=== PATIENT | male | born 1980 | race Two or more races ===

== ENCOUNTER 2017-09-06 20:05 | Emergency (ER) | payer OTHER ==
[~2017-09-06] VITALS: Ht 170.2 cm; Wt 59.9 kg
[~2017-09-06 20:05] MED LIST: ACYCLOVIR800 MG ORAL; CEPHALEXIN500 MG ORAL; IBUPROFEN600 MG ORAL; PHENAZOPYRIDIN200 MG ORAL; triumeq PO
[2017-09-06] MEDS ORDERED: Ketorolac 30mg Inj IV ONE (21:00)
[2017-09-06 21:18] LABS: APPEARANCE,URINE CLEAR; KETONES,URINE NEGATIVE (NEGATIVE); LEUKOCYTE ESTERASE ,URINE NEGATIVE (NEGATIVE); NITRITE,URINE NEGATIVE (NEGATIVE); PH,URINE 5 (4.5-8.0); PROTEIN,URINE NEGATIVE (NEGATIVE); UROBILINOGEN,URINE NORMAL MG/DL (0.0-1.0)
[2017-09-06 21:19] LABS: BASOPHILS % (AUTO) 1.2 % (0.0-2.0); LYMPHOCYTES % (AUTO) 25.1 % (20.0-45.0); MEAN CORPUSCULAR HGB CONC 35.3 G/DL (32.0-36.0); MEAN CORPUSCULAR VOLUME 102 FL (80-99); MEAN PLATELET VOLUME 6.3 FL (6.5-10.1); MONOCYTES % (AUTO) 6.7 % (1.0-10.0); PLATELET COUNT 405 K/UL (150-450); RED BLOOD COUNT 4.73 M/UL (4.70-6.10); RED CELL DISTRIBUTION WIDTH 10.3 % (11.6-14.8); WHITE BLOOD COUNT 6.1 K/UL (4.8-10.8)
[2017-09-06 21:22] LABS: ANION GAP 12 mmol/L (5-15); CALCIUM 9.3 MG/DL (8.5-10.1); CARBON DIOXIDE 26 MMOL/L (21-32); CHLORIDE 104 MMOL/L (98-107); CREATININE 1.3 MG/DL (0.55-1.30); GLOMERULAR FILTRATION RATE > 60 mL/min (>60); POTASSIUM 4.4 MMOL/L (3.5-5.1); SODIUM 142 MMOL/L (136-145)
[2017-09-06 21:27] LABS: ALANINE AMINOTRANSFERASE 30 U/L (12-78); ASPARTATE AMINO TRANSFERASE 30 U/L (15-37); LIPASE 106 U/L (73-393); TOTAL PROTEIN 8.8 G/DL (6.4-8.2)
[2017-09-06] MEDS ORDERED: Levofloxacin 500mg tab ORAL ONE (22:00)
[2017-09-06] MEDS ORDERED: Morphine Sulfate 4mg/ml Inj IVP ONE (22:00)
[2017-09-06 22:31] VITALS: BP 135/80
--- NOTE | 2017-09-06 22:32 | Emergency Room Report ---
History of Present Illness General Chief Complaint: Abdominal Pain Source: Patient Present Illness HPI 3 weeks of dysuria. Feels like bladder does not empty completely. Initially treated with cipro but only took for 2 days - stopped because he felt better. Second antibiotic course which did not improve the discomfort. He thought it might initially have been a stone. Had an ultrasound yesterday: swollen bladder , prostate. No evidence of stone. No medication has helped recently. He is requesting to have a machuca placed. Seen here 06/12/2016. Had residual hydro and thickened bladder suggestive of UTI and stone. Alleges high tolerance for pain medication. Not eating. Feeling weak. Told by PMD to go to ED. Allergies: Coded Allergies: No Known Allergies (Unverified , 12/09/14) Patient History Past Medical History: see triage record Social History: Reports: smoking, alcohol use Social History Narrative in relationship Reviewed Nursing Documentation: PMH: Agreed, PSxH: Agreed Nursing Documentation-PMH Hx Cardiac Problems: No - HIV Hx Cancer: No Hx Gastrointestinal Problems: Yes - KIDNEY STONE Hx Neurological Problems: No Review of Systems All Other Systems: negative except mentioned in HPI Physical Exam Vital Signs Date Time Temp Pulse Resp B/P (MAP) Pulse Ox O2 Delivery O2 Flow Rate FiO2 09/06/17 20:08 99.1 111 18 136/89 99 Room Air Sp02 EP Interpretation: reviewed, normal General Appearance: well appearing, no apparent distress, GCS 15 Head: normocephalic Eyes: bilateral eye normal inspection, bilateral eye PERRL ENT: moist mucus membranes Neck: supple Respiratory: lungs clear, normal breath sounds Cardiovascular #1: regular rate, rhythm Cardiovascular #2: 2+ radial (R) Gastrointestinal: no guarding, no rebound, tenderness - suprapubic Rectal: deferred Genitourinary: no CVA tenderness Musculoskeletal: back normal, gait/station normal, normal range of motion Neurologic: alert, oriented x3, grossly normal Psychiatric: anxious Skin: normal inspection, warm/dry Medical Decision Making Diagnostic Impression: Primary Impression: Dysuria ER Course Patient presents with dysuria. DDx: UTI, prostatitis, bladder or renal stone ( less likely with recent ultrasound), interstitial cystitis amongst others. Evaluation with labs and UA. Check post void residual. Will treat with hydration and analgesia. Bladder scanner 275 ml (several hours post void). Catheter not indicated. UA clear. Labs unremarkable. Repeat U/S not indicated. Still with pain. Percocet given. Feels pyridium not help. Discussed need for urologic evaluation and need for longer antibiotic course. Patient stable for outpatient observation and treatment. Laboratory Tests Test 09/06/17 20:55 White Blood Count 6.1 K/UL (4.8-10.8) Red Blood Count 4.73 M/UL (4.70-6.10) Hemoglobin 17.0 G/DL (14.2-18.0) Hematocrit 48.2 % (42.0-52.0) Mean Corpuscular Volume 102 FL (80-99) H Mean Corpuscular Hemoglobin 36.0 PG (27.0-31.0) H Mean Corpuscular Hemoglobin Concent 35.3 G/DL (32.0-36.0) Red Cell Distribution Width 10.3 % (11.6-14.8) L Platelet Count 405 K/UL (150-450) Mean Platelet Volume 6.3 FL (6.5-10.1) L Neutrophils (%) (Auto) 67.0 % (45.0-75.0) Lymphocytes (%) (Auto) 25.1 % (20.0-45.0) Monocytes (%) (Auto) 6.7 % (1.0-10.0) Eosinophils (%) (Auto) 0.0 % (0.0-3.0) Basophils (%) (Auto) 1.2 % (0.0-2.0) Prothrombin Time 10.0 SEC (9.30-11.50) Prothrombin Time INR 1.0 (0.9-1.1) PTT 29 SEC (23-33) Urine Color Pale yellow Urine Appearance Clear Urine pH 5 (4.5-8.0) Urine Specific [place] 1.010 (1.005-1.035) Urine Protein Negative (NEGATIVE) Urine Glucose (UA) Negative (NEGATIVE) Urine Ketones Negative (NEGATIVE) Urine Occult Blood Negative (NEGATIVE) Urine Nitrite Negative (NEGATIVE) Urine Bilirubin Negative (NEGATIVE) Urine Urobilinogen Normal MG/DL (0.0-1.0) Urine Leukocyte Esterase Negative (NEGATIVE) Sodium Level 142 MMOL/L (136-145) Potassium Level 4.4 MMOL/L (3.5-5.1) Chloride Level 104 MMOL/L (98-107) Carbon Dioxide Level 26 MMOL/L (21-32) Anion Gap 12 mmol/L (5-15) Blood Urea Nitrogen 8 mg/dL (7-18) Creatinine 1.3 MG/DL (0.55-1.30) Estimate Glomerular Filtration Rate > 60 mL/min (>60) Glucose Level 95 MG/DL (74-106) Calcium Level 9.3 MG/DL (8.5-10.1) Total Bilirubin 0.3 MG/DL (0.2-1.0) Aspartate Amino Transferase (AST) 30 U/L (15-37) Alanine Aminotransferase (ALT) 30 U/L (12-78) Alkaline Phosphatase 74 U/L (46-116) Total Creatine Kinase 112 U/L (26-308) Total Protein 8.8 G/DL (6.4-8.2) H Albumin 4.5 G/DL (3.4-5.0) Globulin 4.3 g/dL Albumin/Globulin Ratio 1.0 (1.0-2.7) Lipase 106 U/L (73-393) Last Vital Signs Date Time Temp Pulse Resp B/P (MAP) Pulse Ox O2 Delivery O2 Flow Rate FiO2 09/06/17 23:00 99.1 80 18 135/80 99 Room Air Status: improved Disposition: HOME, SELF-CARE Condition: Improved Scripts Hydrocodone Bit/Acetaminophen 5-325* (NORCO 5-325 TABLET*) 1 Each Tablet 1 TAB ORAL Q6HR Y for For Pain, #14 TAB Prov: Maynor Estevez M.D. 09/06/17 Ibuprofen* (MOTRIN*) 600 Mg Tablet 600 MG ORAL Q6H Y for For Pain, #20 TAB Prov: Maynor Estevez M.D. 09/06/17 Phenazopyridine Hcl* (PYRIDIUM*) 100 Mg Tablet 100 MG ORAL THREE TIMES A DAY, #18 TAB Prov: Maynor Estevez M.D. 09/06/17 Levofloxacin* (LEVAQUIN*) 500 Mg Tablet 500 MG ORAL DAILY, #10 TAB Prov: Maynor Estevez M.D. 09/06/17 Referrals: [facility],REFERRING (PCP) Maynor Estevez M.D. Sep 06, 2017 22:32
[2017-09-06] MEDS ORDERED: ATIVAN0.5 MG ORAL (22:41)
[2017-09-06] MEDS ORDERED: oxyCODONE HCL/Acetaminophen 5/325mg ORAL ONE (22:45)
[2017-09-06] MEDS ORDERED: LEVAQUIN500 MG ORAL (22:48)
[2017-09-06] MEDS ORDERED: IBUPROFEN600 MG ORAL (22:48)
[2017-09-06] MEDS ORDERED: PHENAZOPYRIDIN100 MG ORAL (22:48)
[2017-09-06] MEDS ORDERED: NORCO 5-325 TA1 EAC1 ORAL (22:48)
[2017-09-06 23:00] VITALS: BP 135/80
== END 2017-09-06 23:00 | disposition home or self-care (01) ==
LOC: EMR 20:51
DX: R30.0 Dysuria (principal); F17.200 Nicotine dependence, unspecified, uncomplicated
CPT/HCPCS: 36415; 80053; 81003; 82550; 83690; 85025; 85610; 85730; 96361; 96374; 96375; 99284; J1885; J2270; J2405

== ENCOUNTER 2017-10-25 06:53 | Emergency (ER) | payer OTHER ==
[~2017-10-25] VITALS: Ht 170.2 cm; Wt 59.9 kg
[~2017-10-25 06:53] MED LIST changes: +ATIVAN0.5 MG ORAL; +LEVAQUIN500 MG ORAL; +NORCO 5-325 TA1 EAC1 ORAL; +PHENAZOPYRIDIN100 MG ORAL
[2017-10-25] MEDS ORDERED: LIDOCAINE HC RC (07:30)
[2017-10-25] MEDS ORDERED: ADULT WAL-100 MG/5 M ORAL (07:37)
[2017-10-25 07:39] VITALS: BP 134/90
--- NOTE | 2017-10-25 08:08 | Emergency Room Report ---
History of Present Illness General Chief Complaint: Gastrointestinal Illness Present Illness HPI Patient is a 37-year-old male who presented after increased rectal bleeding as well as burning sensation. The patient had reportedly had symptoms for 3 weeks. He had prior history of hemorrhoid surgery. Patient prior history of HIV disease. He reports having normal viral loads as well as normal cell counts. He states he's had recent blood draws and had normal blood counts. Patient denies any fever. He denies diarrhea. He states he did not notice what color his stool is. He denies constipation. He reports having a persistent cough for several weeks Allergies: Coded Allergies: No Known Allergies (Unverified , 12/09/14) Patient History Reviewed Nursing Documentation: PMH: Agreed, PSxH: Agreed Nursing Documentation-PMH Hx Cardiac Problems: No - HIV Hx Cancer: No Hx Gastrointestinal Problems: Yes - KIDNEY STONE Hx Neurological Problems: No Review of Systems All Other Systems: negative except mentioned in HPI Physical Exam Vital Signs Date Time Temp Pulse Resp B/P (MAP) Pulse Ox O2 Delivery O2 Flow Rate FiO2 10/25/17 06:58 98.1 86 18 141/96 99 Room Air General Appearance: well appearing, no apparent distress, alert, GCS 15 Head: normocephalic, atraumatic ENT: hearing grossly normal, normal voice Neck: full range of motion, supple Respiratory: no respiratory distress, speaking full sentences Cardiovascular #1: normal inspection, regular rate, rhythm Gastrointestinal: normal inspection Rectal: normal rectal tone, hemorrhoids Musculoskeletal: normal inspection, no calf tenderness Neurologic: normal inspection, alert, oriented x3, responsive, normal gait Psychiatric: normal inspection, judgement/insight normal, mood/affect normal Skin: normal inspection, normal color, no rash Medical Decision Making Diagnostic Impression: Primary Impression: Rectal bleeding Additional Impression: Gastrointestinal symptom ER Course Patient presented for rectal bleeding. Differential diagnosis included hemorrhoids, fissure, Fournieres gangrene, cellulitis, diverticular bleeding, peptic ulcer disease among others. Patient has a benign exam and does not appear to require any further imaging or laboratory testing at this time. Patient was offered check blood counts which he declined. The patient does not appear to require any imaging at this time. Patient had minimal bleeding. The patient was given a prescription for hydrocortisone cream as well as cough medication. Patient was advised followup with GI for further evaluation and treatment. The patient is advised to follow up with primary care doctor in 1- 2 days. Patient is advised to return if any worsening condition or if any changes in status that are concerning. This report is dictated with [employer] owner software which may occasionally lead to discrepancies related to use of this software. Last Vital Signs Date Time Temp Pulse Resp B/P (MAP) Pulse Ox O2 Delivery O2 Flow Rate FiO2 10/25/17 07:39 98.1 76 18 134/90 99 Room Air Status: improved Disposition: HOME, SELF-CARE Condition: Stable Scripts Guaifenesin* (ADULT WAL-TUSSIN*) 100 Mg/5 Ml Liquid 10 ML ORAL Q4H, #120 ML Prov: Merrill Pham 10/25/17 Hydrocortisone Ac/Lidocaine (LIDOCAINE-HC 3-1% CREAM KIT) 1 Each Kit 1 EACH RC TWICE A DAY, #14 KIT Prov: Merrill Pham 10/25/17 Referrals: JAQUELIN CASILLAS (PCP) Patient Instructions: Hydrocortisone; Lidocaine rectal cream or gel Merrill Pham Oct 25, 2017 08:07
== END 2017-10-25 07:39 | disposition home or self-care (01) ==
LOC: EMR 07:32
DX: K62.5 Hemorrhage of anus and rectum (principal); K64.9 Unspecified hemorrhoids; Z87.442 Personal history of urinary calculi
CPT/HCPCS: 99283